=== PATIENT | male | born 1970 | race Two or more races ===

== ENCOUNTER 2021-04-07 05:15 | Day surgery (SDC) | payer BC ==
[2021-04-07 11:15] VITALS: BMI 29.8
[2021-04-07 12:49] VITALS: TEMP 96
[2021-04-07 13:50] VITALS: BP 108/65; PULSE 62
== END 2021-04-07 13:55 | disposition home or self-care (01) ==
LOC: JASU-ENDO 05:15
PROVIDERS: ATTEND Internal Medicine Gastroenterology
PROC: 0DBN8ZX Excision of Sigmoid Colon, Via Natural or Artificial Opening Endoscopic, Diagnostic (ICD-10-PCS; 2021-04-07)
PROC: 0DBP8ZX Excision of Rectum, Via Natural or Artificial Opening Endoscopic, Diagnostic (ICD-10-PCS; principal; 2021-04-07 12:14)
DX: Z12.11 Encounter for screening for malignant neoplasm of colon (principal); D12.8 Benign neoplasm of rectum; K62.1 Rectal polyp; K63.5 Polyp of colon
CPT/HCPCS: 88305-TC